=== PATIENT | male | born 1950 | race Caucasian/White ===

== ENCOUNTER → 2017-08-27 | Outpatient (CLI) | payer MEDICARE, OTHER | LOC: GMAB 11:40 | PROVIDERS: ATTEND Family Medicine | DX: I10 Essential (primary) hypertension (principal); E29.1 Testicular hypofunction; Z12.5 Encounter for screening for malignant neoplasm of prostate | CPT/HCPCS: 84403; 84443; G0103 ==

== ENCOUNTER 2017-10-10 08:01 | Day surgery (SDC) | payer MEDICARE, OTHER ==
[2017-10-10] MEDS ORDERED: LACTATED RINGERS 1,000 ML ONE (08:03)
--- NOTE | 2017-10-10 09:40 | OP ---
DATE OF PROCEDURE: 10/10/17 PREPROCEDURE DIAGNOSIS: 1. Eisenberg's esophagus. 2. Status post Xin fundoplication. 3. Gastroesophageal reflux disease. POSTPROCEDURE DIAGNOSIS: 1. Status post Xin fundoplication anatomy. 2. [place]-colored mucosa islands, biopsied. 3. Erythematous gastric mucosa, biopsied. PROCEDURE: 1. Esophagogastroduodenoscopy. SURGEON: Efrain Felipe MD COMPLICATIONS: No immediate complications. SEDATION: The patient was sedated via IV propofol by the Anesthesia Department. CONSENT: Prior to the procedure, risks, benefits and alternatives to the therapy were discussed with the patient. The risks included bleeding, infection , perforation and . The patient agreed to the procedure and signed a consent. PREPROCEDURE ANESTHESIA ASSESSMENT: An examination revealed no contraindication to sedation. Airway examination demonstrated a Mallampati class type 2, ASA grade assessment type 2. Throughout the procedure, the patient's blood pressure, pulse and oxygen saturation were monitored continuously. PROCEDURE: The patient was placed in the left lateral decubitus position. Bite block was placed in the mouth between the teeth. The Olympus endoscope was introduced through the oropharynx, esophagus, stomach and the second portion of the duodenum. The scope was retracted and the mucosa visualized. The entirety of the exam was performed under direct visualization. Retroflexion was performed in the stomach. The patient tolerated the procedure well. FINDINGS: 1. Evidence of a previous surgery was visualized in the distal esophagus and proximal stomach, characterized by a gastric fold wrap around the gastroesophageal junction, likely corresponding to history of Xin fundoplication. The wrap appeared healthy. 2. An irregular Z-line was seen at 40 cm from the incisors, biopsies were obtained to rule out intestinal metaplasia. 3. Two salmon-colored islands were seen at 35 cm from the incisors at 6 o'clock radial and 36 cm at 5 o'clock radial. These were biopsied to rule out intestinal metaplasia. 4. Diffuse erythematous mucosa was seen in the gastric antrum and gastric body. Scattered erosions were seen in the gastric body. Biopsy to rule out H. pylori infection and intestinal metaplasia. 5. Normal duodenum. RECOMMENDATION: 1. Return the patient home. 2. Resume previous diet. 3. Continue present dose of acid suppressant medication. 4. Followup pathology results. If evidence of intestinal metaplasia, suggestive of Eisenberg's esophagus, need to establish whether or not any dysplasia for additional recommendations. Also, there will be a need for a repeat upper endoscopy for surveillance in the future. 5. Gastroesophageal reflux general recommendations. 6. Return to my office in the next 2 to 4 weeks to followup with results. 7. The findings and recommendations were discussed with the patient and family members. #[id number] [facility]
[2017-10-10] MEDS ORDERED: LIDOCAINE 1% 10 ML VIAL INJ ONE (10:00)
[2017-10-10] MEDS ORDERED: PROPOFOL 200 MG/20 ML VIAL IV ONE (10:00)
[2017-10-10 10:26] VITALS: TEMP 97.4; O2SAT 95
[2017-10-10 10:27] VITALS: BP 120/85
== END 2017-10-10 10:20 | disposition home or self-care (01) ==
LOC: AMB 08:01
PROVIDERS: ATTEND Internal Medicine Gastroenterology
DX: K22.70 Barrett's esophagus without dysplasia (principal); K29.50 Unspecified chronic gastritis without bleeding; K31.89 Other diseases of stomach and duodenum; K21.0 Gastro-esophageal reflux disease with esophagitis; I10 Essential (primary) hypertension; Z88.5 Allergy status to narcotic agent; Z79.899 Other long term (current) drug therapy
CPT/HCPCS: 00731; 43239; 88305; 88342; J3490; J7120

== ENCOUNTER → 2018-10-03 | Outpatient (CLI) | payer MEDICARE, OTHER | LOC: GMAE 10:55 | PROVIDERS: ATTEND Family Medicine | DX: E29.1 Testicular hypofunction (principal); I10 Essential (primary) hypertension; Z12.5 Encounter for screening for malignant neoplasm of prostate | CPT/HCPCS: 84403; 84443; G0103 ==

== ENCOUNTER → 2020-01-06 | Outpatient (CLI) | payer MEDICARE, OTHER | LOC: GMAE 10:46 | PROVIDERS: ATTEND Family Medicine | DX: Z12.5 Encounter for screening for malignant neoplasm of prostate (principal); I10 Essential (primary) hypertension | CPT/HCPCS: 84443; G0103 ==

== ENCOUNTER 2020-02-04 05:51 | Day surgery (SDC) | payer MEDICARE, OTHER ==
[2020-02-04] MEDS ORDERED: LACTATED RINGERS 1,000 ML ONE (07:10)
[2020-02-04] MEDS ORDERED: LACTATED RINGERS 1,000 ML IVS ONE (09:05)
[2020-02-04] MEDS ORDERED: LIDOCAINE 1% 10 ML VIAL INJ ONE (10:00)
[2020-02-04] MEDS ORDERED: PROPOFOL 200 MG/20 ML VIAL IV ONE (10:00)
[2020-02-04 10:58] VITALS: BP 81/40; TEMP 97.5; O2SAT 93
--- NOTE | 2020-02-04 11:01 | OP ---
DATE OF PROCEDURE: 02/04/20 PREOPERATIVE DIAGNOSIS: 1. History of Eisenberg's esophagus. POSTOPERATIVE DIAGNOSIS: 1. Short segment Eisenberg's esophagus. 2. Gastritis. PROCEDURE: 1. Esophagogastroduodenoscopy plus biopsy. SURGEON: Nolberto Espinoza MD. COMPLICATIONS: None apparent. BLOOD LOSS: None. MEDICATIONS: Monitored anesthesia care. DESCRIPTION OF PROCEDURE: Informed consent was obtained prior to sedation. The preprocedure cardiopulmonary assessment was satisfactory. The patient was placed in the left lateral decubitus position and was sedated. The tip of the Olympus esophagogastroduodenoscope was inserted in the oropharynx and carefully advanced through the cricopharyngeus into the esophageal lumen. The upper GI tract was investigated carefully, including using both direct and retroflexed views in the stomach. ENDOSCOPIC FINDINGS: 1. Esophagus: The patient has short segment Eisenberg's, [place] Classification C0, M1, ranging from 37 to 38 cm from the incisors. Biopsies of the Eisenberg's were obtained with cold biopsy forceps. Previously, Dr. Bruner saw salmon- colored islands proximal to the Z-line. There were none seen today. No other abnormalities were seen in the esophagus. 2. Stomach: The patient has evidence of prior Xin fundoplication. The patient has significant antral gastritis characterized by linear ulceration which is shallow, erythema and edema. Biopsies with the cold biopsy forceps were taken from that. Besides the gastritis and evidence of his prior surgery, the stomach was otherwise unremarkable. 3. Duodenum: Unremarkable to the third portion. The procedure was then terminated and the patient was sent to Recovery. RECOMMENDATIONS: 1. Continue his daily Nexium and antireflux lifestyle measures. 2. Followup the biopsies. 3. He is due colonoscopy in November of 2021 and we will be following back up with him for that. #[id number] cc: Santos Samaniego MD [facility]
== END 2020-02-04 11:45 | disposition home or self-care (01) ==
LOC: AMB 05:51
PROVIDERS: ATTEND Internal Medicine Gastroenterology
DX: K29.50 Unspecified chronic gastritis without bleeding (principal); K21.0 Gastro-esophageal reflux disease with esophagitis; K22.70 Barrett's esophagus without dysplasia; K25.9 Gastric ulcer, unspecified as acute or chronic, without hemorrhage or perforation; I10 Essential (primary) hypertension; Z98.890 Other specified postprocedural states; Z79.899 Other long term (current) drug therapy; Z88.5 Allergy status to narcotic agent
CPT/HCPCS: 00731; 43239; 88305; J3490; J7120

== ENCOUNTER → 2020-03-15 | Outpatient (CLI) | payer MEDICARE, OTHER ==
--- NOTE | 2020-03-16 07:40 | MRI ---
Study: MRI of the Right Knee. Indication: PN IN RIGHT KNEE Technique: Multiplanar, multi sequence MRI of the right knee was obtained without intravenous contrast. Comparison: None Findings: Mild mucoid degeneration ACL. PCL, MCL, and lateral collateral ligament complex intact. Degenerative signal posterior horn and body medial meniscus. Subtle undersurface fraying posterior horn lateral meniscus. Areas of grade 2 and 3 chondral thinning medial and lateral knee compartments with mild subchondral marrow change anteromedial margin medial tibial plateau where grade 4 chondrosis is suspected. Low-grade tendinosis quadriceps tendon insertion and patellar tendon origin. Patella normally located. Patchy grade 3/4 chondrosis of the central aspect of the patella with grade 2-3 changes throughout the femoral trochlea. Moderate size knee effusion. No acute fracture. Impression: Scattered degenerative signal change medial meniscus with subtle undersurface fraying posterior horn lateral meniscus. No fluid-filled tear. Mild mucoid degeneration ACL. Grade 2-3 chondral loss medial compartment with minimal grade 4 chondrosis and subchondral marrow change at the anteromedial margin of the medial femoral condyle. Low-grade tendinosis quadriceps tendon insertion and patellar tendon origin. Grade 3-4 chondrosis central patella with grade 2-3 changes of the femoral trochlea. Moderate size knee effusion. Electronically signed by: Humberto Otero MD 03/16/2020 7:39 AM CDT
== END | disposition home or self-care (01) ==
LOC: MRI 10:11
PROVIDERS: ATTEND Family Medicine
DX: M25.561 Pain in right knee (principal)